=== PATIENT | female | born 1970 | race Caucasian/White ===

== ENCOUNTER → 2016-10-25 | Outpatient (CLI) | payer OTHER | LOC: FIMAGING 09:38 | PROVIDERS: ATTEND Physician Assistant Medical | DX: N83.9 Noninflammatory disorder of ovary, fallopian tube and broad ligament, unspecified (principal); D25.2 Subserosal leiomyoma of uterus; D25.0 Submucous leiomyoma of uterus; Z97.5 Presence of (intrauterine) contraceptive device ==

== ENCOUNTER 2017-10-12 13:12 | Emergency (ER) | payer OTHER ==
--- NOTE | 2017-10-12 13:22 | EDPHY ---
H & P Time Seen by Provider: 10/12/17 13:18 HPI/ROS: CHIEF COMPLAINT: Low sodium HISTORY OF PRESENT ILLNESS: Patient saw her new primary care physician this week and had labs done yesterday which showed a low sodium yesterday 120 and she was asked to come to the ER. Currently she is asymptomatic. Does not have dizziness or weakness or any neurologic symptoms. She has some increased urination, but no other symptoms. She has lost 30 lb over the last year and a half but that is by changing her diet and that was intentional. She does drink a lot of water. She brings in what looks like about a 1-1.5L bottle and says she drinks on average 12 of them a day without any additional electrolytes. REVIEW OF SYSTEMS: Eye: no change in vision ENT: no sore throat Cardiac: no chest pain or syncope Pulmonary: no cough or SOB Abdomen: no vomiting, diarrhea, abdominal pain Musculoskeletal: no back pain Skin: no rash Neuro: no headache Constitutional: no fever : HPI A comprehensive 10 point review of systems is otherwise negative aside from elements mentioned in the history of present illness. PAST MEDICAL HISTORY: Hypertension, on lisinopril Social history: Former smoker, planning to leave for [place] [employer] on Sunday in 2 days. General Appearance: Alert and conversant, cooperative. Eyes: No scleral icterus. ENT, Mouth: Normal mucous membranes. Respiratory: Normal respiratory effort, breath sounds equal, lungs are clear to auscultation. Cardiovascular: Regular rate and rhythm. Gastrointestinal: Abdomen is soft and non tender. Neurological: Alert, face symmetric, ambulatory. Skin: Warm and dry, no rashes. Musculoskeletal: No peripheral edema. Psychiatric: Not agitated. Emergency Department course/MDM: Labs recheck, sodium 123. Admission discussed and recommended to the patient but she refuses. She is calm and rational, and clearly has capacity to make decisions regarding her care. She is warned of the risks of refusal including but not limited to seizure, neurologic dysfunction, permanent disability, and . She states she understands these risks but wants to leave, against my medical advice. She states she has "a lot of things to do" to get ready for her trip and is concerned about cost. She is warned about needing to decrease her plain water intake to less than 2 L per day until her sodium normalizes. She is warned that if she is not admitted , she needs at minimum a recheck of her sodium tomorrow, she can contact her primary care doctor to schedule this. She is warned by myself I think it is a bad idea for her to travel if she is still hyponatremic tomorrow. Smoking Status: Former smoker Constitutional: Initial Vital Signs Temperature (C) 36.4 C 10/12/17 13:12 Heart Rate 72 10/12/17 13:12 Respiratory Rate 16 10/12/17 13:12 Blood Pressure 164/106 H 10/12/17 13:12 O2 Sat (%) 99 10/12/17 13:12 O2 Delivery Mode Room Air Allergies/Adverse Reactions: No Known Allergies Allergy (Verified 10/12/17 13:13) Home Medications: Medication Instructions Recorded Lisinopril [Zestril 10 mg (*)] 10 mg PO 10/12/17 Medical Decision Making - Data Points Laboratory Results: Laboratory Results 10/12/17 13:35 10/12/17 13:35 10/12/17 10/12/17 13:35 13:35 WBC 3.86 10^3/uL 10^3/uL (3.80-9.50) RBC 4.35 10^6/uL 10^6/uL (4.18-5.33) Hgb 14.8 g/dL g/dL (12.6-16.3) Hct 40.6 % % (38.0-47.0) MCV 93.3 fL fL (81.5-99.8) MCH 34.0 pg pg (27.9-34.1) MCHC 36.5 g/dL g/dL (32.4-36.7) RDW 12.5 % % (11.5-15.2) Plt Count 420 10^3/uL H 10^3/uL (150-400) MPV 7.9 fL L fL (8.7-11.7) Neut % (Auto) 54.6 % % (39.3-74.2) Lymph % (Auto) 30.1 % % (15.0-45.0) [place] % (Auto) 14.2 % H % (4.5-13.0) Eos % (Auto) 0.0 % L % (0.6-7.6) Baso % (Auto) 0.8 % % (0.3-1.7) Nucleat RBC Rel Count 0.0 % % (0.0-0.2) Absolute Neuts (auto) 2.11 10^3/uL 10^3/uL (1.70-6.50) Absolute Lymphs (auto) 1.16 10^3/uL 10^3/uL (1.00-3.00) Absolute Monos (auto) 0.55 10^3/uL 10^3/uL (0.30-0.80) Absolute Eos (auto) 0.00 10^3/uL L 10^3/uL (0.03-0.40) Absolute Basos (auto) 0.03 10^3/uL 10^3/uL (0.02-0.10) Absolute Nucleated RBC 0.00 10^3/uL 10^3/uL (0-0.01) Immature Gran % 0.3 % % (0.0-1.1) Immature Gran # 0.01 10^3/uL 10^3/uL (0.00-0.10) Sodium 123 mEq/L L mEq/L (135-145) Potassium 4.6 mEq/L mEq/L (3.3-5.0) Chloride 85 mEq/L L mEq/L (97-110) Carbon Dioxide 28 mEq/l mEq/l (22-31) Anion Gap 10 mEq/L mEq/L (8-16) BUN 5 mg/dL L mg/dL (7-23) Creatinine 0.4 mg/dL L mg/dL (0.6-1.0) Estimated GFR > 60 Glucose 69 mg/dL L mg/dL (70-100) Calcium 9.8 mg/dL mg/dL (8.5-10.4) Departure - Departure Disposition: Against Medical Advice Clinical Impression: Hyponatremia Condition: Good Instructions: Hyponatremia (ED) Additional Instructions: Drink no more than 2 liters of "free" water per day over the next 2 days. "Free water" is water or other drink without electrolytes. Sodium recheck tomorrow; call your doctor's office today to have her order it. Return right away if you get new symptoms or change your mind about hospital admission. Referrals: Yudi Novak MD [Primary Care Provider] - As per Instructions
[2017-10-12 13:46] LABS: PLATELET COUNT 420 10^3/uL (150-400)
[2017-10-12 14:48] VITALS: BP 148/120
== END 2017-10-12 14:51 | disposition left against medical advice (07) ==
DX: E87.1 Hypo-osmolality and hyponatremia (principal); I10 Essential (primary) hypertension; Z87.891 Personal history of nicotine dependence

== ENCOUNTER → 2018-01-01 | Outpatient (CLI) | payer OTHER | LOC: BMCIMAGING 10:59 | PROVIDERS: ATTEND Physician Assistant | DX: Z13.820 Encounter for screening for osteoporosis (principal); M81.0 Age-related osteoporosis without current pathological fracture; Z78.0 Asymptomatic menopausal state; E03.9 Hypothyroidism, unspecified ==